=== PATIENT | female | born 1950 | race Caucasian/White ===

== ENCOUNTER 2018-06-15 13:19 | Outpatient (CLI) | payer MEDICARE, OTHER ==
[2018-06-15 15:50] VITALS: BMI 28.3
== END 2018-06-15 13:20 | disposition home or self-care (01) ==
LOC: MADDTY/OP 13:19
PROVIDERS: ATTEND Obstetrics & Gynecology
DX: E11.9 Type 2 diabetes mellitus without complications (principal)
CPT/HCPCS: 97802

== ENCOUNTER 2020-04-30 10:43 | Outpatient (CLI) | payer MEDICARE, OTHER ==
--- NOTE | 2020-04-30 11:08 | RAD ---
XR Lumbar Spine 2 Or 3 View HISTORY: Low back pain FINDINGS: Degenerative changes are seen predominantly in the lower lumbar spine. There is minimal anterolisthes is of L4 over L5. No acute fracture or bony destruction is identified.
== END 2020-04-30 10:44 | disposition home or self-care (01) ==
LOC: MADRAD 10:43
PROVIDERS: ATTEND Registered Nurse
DX: M54.41 Lumbago with sciatica, right side (principal)
CPT/HCPCS: 72100

== ENCOUNTER 2024-10-30 11:44 | Outpatient (CLI) | payer MEDICARE | END 2024-10-30 11:45 | disposition home or self-care (01) | LOC: MADRAD 11:44 | PROVIDERS: ATTEND Physician Assistant | DX: R05.9 Cough, unspecified (principal) | CPT/HCPCS: 71046 ==